=== PATIENT | male | born 1980 | race Caucasian/White ===

== ENCOUNTER 2024-06-30 09:38 | Emergency (ER) | payer OTHER, SELFPAY ==
[2024-06-30 09:48] VITALS: BP 141/91; PULSE 83; TEMP 36.7; O2SAT 98; BMI 25.8
--- NOTE | 2024-06-30 09:53 | ED.GENADUL1 ---
HPI HPI - General Adult General Chief complaint: Back Pain/Injury Stated complaint: BACK PAIN Time Seen by Provider: 06/30/24 09:47 Source: patient Mode of arrival: walk-in History of Present Illness HPI narrative: 43-year-old male presents to the emergency department for a chief complaint of lower back pain. About 1 hour ago he was picking up a 25 pound toddler and felt a popping sensation across his lower back and he continues to have pain. No weakness or numbness and he did not fall. Nothing struck him in his back. He does not have a history of back issues. The pain is severe and worse in certain positions. Related Data Previous Rx's ?Medication ?Instructions ?Recorded ibuprofen 800 mg tablet 800 mg PO Q8H PRN pain #20 tabs 06/30/24 methocarbamol 750 mg tablet 750 mg PO Q6H PRN pain #20 tabs 06/30/24 Allergies Allergy/AdvReac Type Severity Reaction Status Date / Time No Known Drug Allergies Allergy Verified 06/30/24 09:47 Opioid HPI Opioid Management Most Recent Opioid Data: Last ED Pain Assessment 06/30/24 10:39 Review of Systems ROS Narrative A ten point review of systems is negative except as noted above. PFSH PFSH Social History Little interest or pleasure in doing things: not at all Feeling down, depressed, or hopeless: not at all Exam Narrative Exam Narrative: Nurses note and vital signs reviewed and patient is not hypoxic. General: The patient appears uncomfortable. Skin: Warm, dry, no pallor noted. There is no rash noted. Head: Normocephalic, atraumatic Eye: Normal conjunctiva, no drainage Ears, Nose, Mouth, and Throat: oral mucosa is moist. Nares patent. Cardiovascular: Regular Rate and Rhythm Respiratory: Patient is in no distress, no accessory muscle use, lungs are clear to auscultation, no wheezing, rales or rhonchi Back: No bruise rash or abrasion and there is no focal area of tenderness to palpation. GI: Soft and nontender Musculoskeletal: The patient has no evidence of calf tenderness, no pitting edema, symmetrical pulses noted bilaterally Neurological: A&O, normal speech lower extremity strength is intact and symmetric Psychiatric: Cooperative Constitutional Vital Signs, click to edit/add: Last Vital Signs Temp 98.1 F 06/30/24 09:48 Pulse 83 06/30/24 09:48 Resp 20 06/30/24 09:48 BP 141/91 06/30/24 09:48 Pulse Ox 98 06/30/24 09:48 O2 Del Method Room Air 06/30/24 09:48 Course Vital Signs Vital signs: Vital Signs Temperature 98.1 F 06/30/24 09:48 Pulse Rate 83 06/30/24 09:48 Respiratory Rate 20 06/30/24 09:48 Blood Pressure 141/91 06/30/24 09:48 Pulse Oximetry 98 06/30/24 09:48 Oxygen Delivery Method Room Air 06/30/24 09:48 Temperature 98.1 F 06/30/24 09:48 Pulse Rate 83 06/30/24 09:48 Respiratory Rate 20 06/30/24 09:48 Blood Pressure 141/91 06/30/24 09:48 Pulse Oximetry 98 06/30/24 09:48 Oxygen Delivery Method Room Air 06/30/24 09:48 Medical Decision Making MDM Narrative Medical decision making narrative: X-ray is negative. She feels much better after being given IM Toradol and Norflex and is discharged home on ibuprofen and Robaxin. Treatment diagnosis and follow-up were discussed with the patient. Differential Diagnosis Differential Diagnosis: Muscle strain, fracture Imaging Data Lumbar x-rays: Radiologist's impression: Normal alignment, no fracture, vertebral body heights are maintained, no disc space height loss Discharge Plan Discharge Chief Complaint: Back Pain/Injury Clinical Impression: Lumbar strain Patient Disposition: Home, Self-Care Time of Disposition Decision: 11:28 Condition: Good Mode of Transportation: Private Vehicle Prescriptions / Home Meds: New ibuprofen 800 mg tablet 800 mg PO Q8H PRN (Reason: pain) Qty: 20 0RF methocarbamol 750 mg tablet 750 mg PO Q6H PRN (Reason: pain) Qty: 20 0RF Print Language: [place] Instructions: Low Back Strain (ED) Referrals: Physician,Non-Staff, MD [Primary Care Provider] - 1 week
[2024-06-30] MEDS: KETOROLAC TROMETHAMINE 60 MG/2 ML VIAL IM (09:57)
[2024-06-30] MEDS: ORPHENADRINE 60 MG/2 ML VIAL IM (09:57)
== END 2024-06-30 12:03 | disposition home or self-care (01) ==
PROVIDERS: Emergency Provider Emergency Medicine
DX: S39.012A Strain of muscle, fascia and tendon of lower back, initial encounter (principal); X50.9XXA Other and unspecified overexertion or strenuous movements or postures, initial encounter
CPT/HCPCS: 72100; 96372; 99284; J1885; J2360